=== PATIENT | female | born 1965 | race Hispanic/Latino ===

== ENCOUNTER 2016-07-26 20:39 | Emergency (ER) | payer BC ==
[2016-07-26 20:48] VITALS: BMI 24.3
[2016-07-26 20:53] VITALS: TEMP 98.7
[2016-07-26] MEDS ORDERED: Sodium Chloride 0.9% 1,000 ML IV STA (21:03)
--- NOTE | 2016-07-26 21:08 | ED PDOC ---
"Arrival/HPI - General Chief Complaint: Groin Pain Time Seen by Provider: 07/26/16 20:47 Historian: Patient - History of Present Illness Narrative History of Present Illness (Text): 07/26/16 21:05 51 y/o female, pmh including hypovitaminosis, penicillin and codeine allergy, post menopausal, c/o rt. groin pain x 2 months after heavy lifting. Aching pain , aggravated by squatting, no urinary symptoms, no fever or chills, no headache or night sweat. Pt. stated that the pain started about 3 days ago, been taking motrin daily, started to have burning pain, no night sweat, no dizziness, no numbness or tingling, no palpitation, no night sweat, no other medical or psychological complaints. Past Medical History - Provider Review Nursing Documentation Reviewed: Yes - Infectious Disease Hx of Infectious Diseases: None - Cardiac Hx Cardiac Disorders: No Hx Pacemaker: No - Pulmonary Hx Respiratory Disorders: No - Neurological Hx Neurological Disorder: No Hx Paralysis: No - HEENT Hx HEENT Disorder: No - Renal Hx Renal Disorder: No - Endocrine/Metabolic Hx Endocrine Disorders: No - Hematological/Oncological Hx Blood Disorders: No Hx Blood Transfusions: No Hx Blood Transfusion Reaction: No - Integumentary Hx Dermatological Disorder: No - Musculoskeletal/Rheumatological Hx Musculoskeletal Disorders: Yes (l knee surgery) - Gastrointestinal Hx Gastrointestinal Disorders: Yes (appendectomy) - Genitourinary/Gynecological Hx Genitourinary Disorders: No - Psychiatric Hx Psychophysiologic Disorder: Yes Hx Anxiety: Yes Hx Emotional Abuse: No Hx Physical Abuse: No Hx Substance Use: No - Surgical History Hx Appendectomy: Yes Hx Tonsillectomy: Yes - Anesthesia Hx Anesthesia: Yes Hx Anesthesia Reactions: No Hx Malignant Hyperthermia: No - Suicidal Assessment Feels Threatened In Home Enviroment: No Family/Social History - Physician Review Nursing Documentation Reviewed: Yes Family/Social History: Unknown Family HX Smoking Status: Former Smoker Hx Alcohol Use: Yes Frequency of alcohol use: Socially Hx Substance Use: No Allergies/Home Meds Allergies/Adverse Reactions: Allergies codeine Allergy (Verified 07/26/16 20:49) ANAPHYLAXIS Penicillins Allergy (Verified 07/26/16 20:49) ANAPHYLAXIS Home Medications: Home Meds Medication Instructions Recorded Confirmed Vitamin D 4,000 iu PO DAILY 03/13/13 07/26/16 Alprazolam [Alprazolam] 0.5 mg PO DAILY 03/16/13 07/26/16 Review of Systems - Review of Systems Constitutional: absent: Fatigue, Fevers Eyes: absent: Vision Changes ENT: absent: Hearing Changes Respiratory: absent: Cough Cardiovascular: absent: Chest Pain Gastrointestinal: Abdominal Pain, Nausea. absent: Diarrhea, Vomiting Neurological: absent: Headache, Dizziness, Focal Weakness, Speech Changes Psychiatric: absent: Depression, Suicidal Ideation Physical Exam Vital Signs Reviewed: Yes Vital Signs Temp Pulse Resp BP Pulse Ox 07/26/16 22:54 65 14 100/61 96 07/26/16 20:52 98.7 F 85 19 143/79 97 Temperature: Afebrile Blood Pressure: Normal Pulse: Regular Respiratory Rate: Normal Appearance: Positive for: Well-Appearing, Non-Toxic, Uncomfortable Pain Distress: Moderate Mental Status: Positive for: Alert and Oriented X 3 - Systems Exam Head: Present: Atraumatic, Normocephalic Pupils: Present: PERRL Extroacular Muscles: Present: EOMI Conjunctiva: Present: Normal Mouth: Present: Moist Mucous Membranes Neck: Present: Normal Range of Motion Respiratory/Chest: Present: Clear to Auscultation, Good Air Exchange. No: Respiratory Distress, Accessory Muscle Use Cardiovascular: Present: Regular Rate and Rhythm, Normal S1, S2. No: Murmurs Abdomen: Present: Tenderness (+epigastric tenderness, negative valenzuela signs), Normal Bowel Sounds, Other (+lump approx. 2cm diameter noted on the rt. groin region appear to be hernia). No: Distention, Peritoneal Signs, Rebound Back: Present: Normal Inspection Upper Extremity: Present: Normal Inspection. No: Cyanosis, Edema Lower Extremity: Present: Normal Inspection. No: Edema Neurological: Present: GCS=15, Speech Normal, Motor Func Grossly Intact, Gait Normal, Memory Normal Skin: Present: Warm, Dry, Normal Color. No: Rashes Psychiatric: Present: Alert, Oriented x 3, Normal Insight, Normal Concentration Medical Decision Making ED Course and Treatment: 07/26/16 21:09 -labs/ua/lipase -CT Abdomen and pelvis -IVF/toradol/pepcid/zofran -Observe and reassess 07/26/16 22:16 -Pt. stated that she is allergic to contrast, will change to CT abdomen and pelvis with no contrast. -Swelling lump on the rt. groin region resolved after laying in supine position and pain medication. 07/26/16 23:07 -Labs are non-significant -CT abdomen and pelvis show no acute findings. -Pain resolved with lump resolved, stated that she feels much better, will discharge home. -Discharge home with motrin , avoid lifting/bending or pushing, follow up with your own pmd and general surgeon within 2 days, return to the ER for any new or worsening signs or symptoms. - Lab Interpretations Lab Results: 07/26/16 21:15 07/26/16 21:15 Lab Results 07/26/16 21:15: Sodium 138, Potassium 3.6, Chloride 102, Carbon Dioxide 25, Anion Gap 15, BUN 19, Creatinine 0.8, Est GFR ( Amer) > 60, Est GFR (Non- Af Amer) > 60, Random Glucose 101, Calcium 9.7, Total Bilirubin 0.8, AST 27, ALT 31, Alkaline Phosphatase 69, Total Protein 7.6, Albumin 4.6, Globulin 3.0, Albumin/Globulin Ratio 1.5, Lipase 43 07/26/16 21:15: WBC 7.3, RBC 3.96, Hgb 13.0, Hct 37.0, MCV 93.4, MCH 32.8, MCHC 35.1, RDW 12.1, Plt Count 249, MPV 9.7, Gran % 59.2, Lymph % (Auto) 31.9, [place] % (Auto) 7.0 H, Eos % (Auto) 1.8, Baso % (Auto) 0.1, Gran # 4.31, Lymph # 2.3, [place] # 0.5, Eos # 0.1, Baso # 0.01 I have reviewed the lab results: Yes Interpretation: No clinic. lab abnormalty - RAD Interpretation Radiology Orders: 07/26/16 21:03 ABD & PELVIS W/O PO OR IV CONT [CT] Stat ABDOMEN: Liver: Unremarkable. Gallbladder and bile ducts: The gallbladder is contracted with no stones. No ductal dilation. Pancreas: Unremarkable. No ductal dilation. Spleen: Unremarkable. No splenomegaly. Adrenals: Unremarkable. No mass. Kidneys and ureters: Unremarkable. No obstructing stones. No hydronephrosis. Stomach and bowel: Borderline distention of the stomach with food material. No mucosal thickening. Appendix: There are no changes of appendicitis. A normal appendix is not seen. JONNY INIGUEZ | Preliminary Radiology Report SALES REPRESENTATIVE SALES MANAGER (QA) DISCREPANCY? If there is a discrepancy between the preliminary and final interpretation, please notify [facility] via [email or web address]. If you do not have access to our QA portal, call our QA team at [phone] CONFIDENTIALITY STATEMENT This report is intended only for the use of the referring physician, and only in accordance with law, If you received this in error, call [phone] Page 2 of 2 PELVIS: Bladder: Unremarkable. No stones. Reproductive: Unremarkable as visualized. ABDOMEN and PELVIS: Intraperitoneal space: Unremarkable. No free air. No significant fluid collection. Bones/joints: Facet arthropathy L5-S1 and to a lesser degree L4-L5. No acute fracture. No dislocation. Soft tissues: Unremarkable. Vasculature: Unremarkable. No abdominal aortic aneurysm. Lymph nodes: No inguinal adenopathy. IMPRESSION: 1. There is borderline distention of the stomach with food material which in view of a contracted gallbladder likely reflects recent ingestion. 2. Otherwise negative CT abdomen/pelvis. Thank you for allowing us to participate in the care of your patient. Dictated and Authenticated by: Ronald Eastman MD 07/26/2016 10:34 PM Eastern Time ([place] & [place]) Women'S Swim Coach: Radiologist - Medication Orders Current Medication Orders: Discontinued Medications Famotidine (Pepcid) 20 mg IVP STAT STA Stop: 07/26/16 21:04 Last Admin: 07/26/16 21:31 Dose: 20 mg Sodium Chloride (Sodium Chloride 0.9%) 1,000 mls @ 500 mls/hr IV .Q2H STA Stop: 07/26/16 23:02 Last Admin: 07/26/16 21:31 Dose: 500 mls/hr Iohexol (Omnipaque 350 100 Ml) Confirm Administered Dose 350 mg .ROUTE .STK-MED ONE Stop: 07/26/16 22:05 Ketorolac Tromethamine (Toradol) 30 mg IVP STAT STA Stop: 07/26/16 21:06 Last Admin: 07/26/16 21:30 Dose: 30 mg Ondansetron HCl (Zofran Inj) 4 mg IVP STAT STA Stop: 07/26/16 21:04 Last Admin: 07/26/16 21:31 Dose: 4 mg - PA / VENETIAN BLIND ASSEMBLER / Resident Statement MD/DO has reviewed & agrees with the documentation as recorded. Disposition/Present on Arrival - Present on Arrival Any Indicators Present on Arrival: No History of DVT/PE: No History of Uncontrolled Diabetes: No Urinary Catheter: No History of Decub. Ulcer: No History Surgical Site Infection Following: None - Disposition Have Diagnosis and Disposition been Completed?: Yes Diagnosis: Reducible right inguinal hernia Disposition: HOME/ ROUTINE Disposition Time: 23:10 Patient Plan: Discharge Condition: IMPROVED Additional Instructions: Discharge home with motrin , avoid lifting/bending or pushing, follow up with your own pmd and general surgeon within 2 days, return to the ER for any new or worsening signs or symptoms. Prescriptions: Famotidine [Pepcid] 20 mg PO BID #14 tab Ibuprofen [Motrin] 600 mg PO QID PRN #30 tab PRN Reason: Other Referrals: Damaso Middleton MD [Primary Care Provider] - Follow up with primary Elodia Steen MD [Staff Provider] - Follow up with primary Forms: WORK NOTE"
[2016-07-26 21:30] LABS: ADD MANUAL DIFF? NO
[2016-07-26 21:43] LABS: BASO # 0.01 K/mm3 (0.0-2.0); BASO % 0.1 % (0.0-3.0); EOS # 0.1 (0.0-0.7); EOS % 1.8 % (1.5-5.0); GRAN # 4.31 (1.4-6.5); GRAN % 59.2 % (50.0-68.0); LYMPH # 2.3 (1.2-3.4); LYMPH % 31.9 % (22.0-35.0); MEAN CELL VOLUME 93.4 fL (80.0-105.0); MEAN CORPUSCULAR HEMOGLOBIN 32.8 pg (25.0-35.0); MEAN CORPUSCULAR HGB CONC 35.1 g/dl (31.0-37.0); MEAN PLATELET VOLUME 9.7 fl (7.0-11.0); MONO # 0.5 (0.1-0.6); PLATELET COUNT 249 10^3/uL (120.0-450.0); RED CELL DISTRIBUTION WIDTH 12.1 % (11.5-14.5); WHITE BLOOD COUNT 7.3 10^3/ul (4.5-11.0)
[2016-07-26 21:50] LABS: ALB/GLOB RATIO 1.5 (1.1-1.8); ALKALINE PHOSPHATASE 69 U/L (38-133); ALT/SGPT 31 U/L (7-56); AST/SGOT 27 U/L (15-39); BILIRUBIN,TOTAL 0.8 mg/dL (0.2-1.3); BLOOD UREA NITROGEN 19 mg/dL (7-21); CALCIUM 9.7 mg/dL (8.4-10.5); CARBON DIOXIDE 25 mmol/L (21-33); CHLORIDE 102 mmol/L (98-107); GFR AFRICAN-AMERICAN > 60; GLUCOSE,RANDOM 101 mg/dL (70-110); LIPASE 43 U/L (23-300); POTASSIUM 3.6 mmol/L (3.6-5.0); SODIUM 138 mmol/L (132-148); TOTAL PROTEIN 7.6 g/dL (5.8-8.3)
[2016-07-26] MEDS ORDERED: Iohexol 350 MG/100 ML VIAL ONE (22:04)
[2016-07-26 22:54] VITALS: BP 100/61; PULSE 65; RESP 14; O2SAT 96
--- NOTE | 2016-07-27 07:38 | CT ---
PROCEDURE: CT Abdomen and Pelvis without Oral or IV contrast. HISTORY: rt. groin pain x 2 months COMPARISON: None available TECHNIQUE: Contiguous axial images of the abdomen and pelvis. No oral or IV contrast administered. Coronal and Sagittal reformats generated. Radiation dose: Total exam DLP = 412.04 mGy-cm. This CT exam was performed using one or more of the following dose reduction techniques: Automated exposure control, adjustment of the mA and/or kV according to patient size, and/or use of iterative reconstruction technique. FINDINGS: There is limited evaluation of the solid organs without the administration of IV contrast. LOWER THORAX: No focal consolidation. No pleural effusion. No pneumothorax. LIVER: Unremarkable unenhanced appearance. GALLBLADDER AND BILE DUCTS: Contracted gallbladder appears otherwise unremarkable. PANCREAS: Unremarkable unenhanced appearance. SPLEEN: Unremarkable unenhanced appearance. ADRENALS: Unremarkable unenhanced appearance. KIDNEYS AND URETERS: No hydronephrosis or obstructing renal calculus. BLADDER: The urinary bladder appears unremarkable. REPRODUCTIVE: Uterus is present. APPENDIX: The appendix is not identified. Numerous surgical clips are noted in the right lower quadrant, possibly related to appendectomy. No secondary signs of acute appendicitis. BOWEL: The stomach is partially distended with internal contents, likely ingested debris. Lack of oral contrast limits evaluation for bowel pathology. The bowel loops appear within normal limits of caliber without evidence of intestinal obstruction. Mild to moderate constipation. PERITONEUM: No significant free fluid. No definite free air. LYMPH NODES: Sub cm bilateral inguinal lymph nodes, nonspecific. VASCULATURE: Atherosclerotic calcifications the aorta ranges. No aortic aneurysm. BONES: Mild degenerative changes. OTHER FINDINGS: None. IMPRESSION: The stomach is partially distended with internal contents, likely ingested debris. Mild to moderate constipation. Preliminary impression was provided by virtual radiologic.
== END 2016-07-26 23:20 | disposition home or self-care (01) ==
LOC: ED 20:39
DX: K40.90 Unilateral inguinal hernia, without obstruction or gangrene, not specified as recurrent (principal)
CPT/HCPCS: 74176; 80053; 83690; 85025; 96374; 96375; 99283; J1885; J2405; J7040

== ENCOUNTER 2016-09-10 19:01 | Emergency (ER) | payer BC ==
[2016-09-10 19:01] VITALS: BMI 24.3
[2016-09-10 19:40] VITALS: TEMP 98.9; O2SAT 98
[2016-09-10] MEDS ORDERED: Sodium Chloride 0.9% 1,000 ML IV SCH (20:15)
--- NOTE | 2016-09-10 20:27 | ED PDOC ---
Arrival/HPI - General Chief Complaint: Abdominal Pain Time Seen by Provider: 09/10/16 19:42 Historian: Patient - History of Present Illness Narrative History of Present Illness (Text): 09/10/16 20:27 A 51 year old female, whose past medical history includes hypovitaminosis, gastric reflux, appendectomy, postmenopausal, penicillin and codeine allergy, presents to the emergency department complaining of persistent right groin discomfort. Patient states waxes and wanes for more than 2 months. Patient reports having episode of heavy lifting prior to onset of symptoms. Patient was seen in the emergency department a month ago, treated and discharged. Abdomen and pelvis CT was normal. Patient reports she doesn't have a hernia. Denies any fever, chills, nausea, vomiting, diarrhea, urinary complaints, vaginal discharge or any other complaints at this time. Time/Duration: Other (> 2 month) Symptom Onset: Sudden Symptom Course: Unchanged Activities at Onset: Rest Context: Home Past Medical History - Provider Review Nursing Documentation Reviewed: Yes - Infectious Disease Hx of Infectious Diseases: None - Cardiac Hx Cardiac Disorders: No Hx Pacemaker: No - Pulmonary Hx Respiratory Disorders: No - Neurological Hx Neurological Disorder: No Hx Paralysis: No - HEENT Hx HEENT Disorder: No - Renal Hx Renal Disorder: No - Endocrine/Metabolic Hx Endocrine Disorders: No - Hematological/Oncological Hx Blood Disorders: No Hx Blood Transfusions: No Hx Blood Transfusion Reaction: No - Integumentary Hx Dermatological Disorder: No - Musculoskeletal/Rheumatological Hx Musculoskeletal Disorders: Yes (l knee surgery) - Gastrointestinal Hx Gastrointestinal Disorders: Yes (appendectomy) Hx Gastroesophageal Reflux: Yes - Genitourinary/Gynecological Hx Genitourinary Disorders: No - Psychiatric Hx Psychophysiologic Disorder: Yes Hx Anxiety: Yes Hx Emotional Abuse: No Hx Physical Abuse: No Hx Substance Use: No - Surgical History Hx Appendectomy: Yes Hx Tonsillectomy: Yes - Anesthesia Hx Anesthesia: Yes Hx Anesthesia Reactions: No Hx Malignant Hyperthermia: No - Suicidal Assessment Feels Threatened In Home Enviroment: No Family/Social History - Physician Review Nursing Documentation Reviewed: Yes Family/Social History: No Known Family HX Smoking Status: Former Smoker Hx Alcohol Use: Yes Hx Substance Use: No Allergies/Home Meds Allergies/Adverse Reactions: Allergies codeine Allergy (Verified 07/26/16 20:49) ANAPHYLAXIS Penicillins Allergy (Verified 07/26/16 20:49) ANAPHYLAXIS Home Medications: Home Meds Medication Instructions Recorded Confirmed ALPRAZolam [Xanax] 0.5 mg PO DAILY 09/10/16 09/10/16 Cholecalciferol [Vitamin D 1000 IU] 4,000 unit PO DAILY 09/10/16 09/10/16 Review of Systems - Physician Review All systems were reviewed & negative as marked: Yes - Review of Systems Constitutional: absent: Fevers, Other (chills) Gastrointestinal: absent: Nausea, Vomiting Genitourinary Female: absent: Dysuria, Frequency, Vaginal Discharge Physical Exam Vital Signs Reviewed: Yes Vital Signs Temp Pulse Resp BP Pulse Ox 09/10/16 19:36 98.9 F 74 18 166/94 H 98 Temperature: Afebrile Blood Pressure: Hypertensive Pulse: Regular Respiratory Rate: Normal Appearance: Positive for: Well-Appearing, Non-Toxic, Comfortable Pain Distress: None Mental Status: Positive for: Alert and Oriented X 3 - Systems Exam Head: Present: Atraumatic, Normocephalic Pupils: Present: PERRL Extroacular Muscles: Present: EOMI Conjunctiva: Present: Normal Mouth: Present: Moist Mucous Membranes Neck: Present: Normal Range of Motion Respiratory/Chest: Present: Clear to Auscultation, Good Air Exchange. No: Respiratory Distress, Accessory Muscle Use Cardiovascular: Present: Regular Rate and Rhythm, Normal S1, S2. No: Murmurs Abdomen: Present: Normal Bowel Sounds. No: Tenderness, Distention, Peritoneal Signs, Hernias Back: Present: Normal Inspection Upper Extremity: Present: Normal Inspection. No: Cyanosis, Edema Lower Extremity: Present: Normal Inspection. No: Edema Neurological: Present: GCS=15, CN II-XII Intact, Speech Normal Skin: Present: Warm, Dry, Normal Color. No: Rashes Psychiatric: Present: Alert, Oriented x 3, Normal Insight, Normal Concentration Medical Decision Making ED Course and Treatment: 09/10/16 20:24 Impression: A 51 year old female with right groin discomfort. Plan: -- US transvaginal -- US abdomen -- labs -- Urinalysis -- IV fluids, Protonix -- Reassess and disposition Prior Visits: Notes and results from previous visits were reviewed. Patient last reported to the emergency department on 07/26/16 for evaluation of right groin pain after heavy lifting. Progress Notes: 09/10/16 23:36 Reviewed sono, US Abdomen shows: 1. No acute findings. 2. Non-acute findings are described above. Transvaginal shows: 1. Probable fibroid. 2. Incidental/non-acute findings are described above. 09/10/16 23:39 Reviewed radiology, CT Abdomen and Pelvis shows: 1. No definite acute intraabdominal abnormality. 2. Incidental/non-acute findings are described above 09/10/16 23:55 On reevaluation the patient feels better and is in no acute distress. I have discussed the results and plan with the patient, who expresses understanding. Patient given the opportunity to ask question, all questions were answered and there is agreement with the plan to discharge the patient home. Patient is stable for discharge. Patient was instructed to follow up with physician/clinic in 1-2 days or return if symptoms persist/worsen or new concerning symptoms arise. - Lab Interpretations Lab Results: 09/10/16 20:20 09/10/16 20:20 Lab Results 09/10/16 20:40: Urine Color Yellow, Urine Appearance Clear, Urine pH 6.0, Ur Specific [place] 1.010, Urine Protein Negative, Urine Glucose (UA) Negative, Urine Ketones Negative, Urine Blood Negative, Urine Nitrate Negative, Urine Bilirubin Negative, Urine Urobilinogen 0.2, Ur Leukocyte Esterase Negative, Urine HCG, Qual Negative 09/10/16 20:20: WBC 7.1, RBC 3.89, Hgb 12.5, Hct 36.5, MCV 93.8, MCH 32.1, MCHC 34.2, RDW 12.1, Plt Count 241, MPV 10.0 09/10/16 20:20: Sodium 139, Potassium 3.9, Chloride 104, Carbon Dioxide 25, Anion Gap 14, BUN 20, Creatinine 0.8, Est GFR ( Amer) > 60, Est GFR (Non- Af Amer) > 60, Random Glucose 95, Calcium 9.2, Total Bilirubin 0.4, AST 20, ALT 30, Alkaline Phosphatase 58, Total Protein 7.4, Albumin 4.3, Globulin 3.1, Albumin/Globulin Ratio 1.4, Lipase 38 I have reviewed the lab results: Yes - RAD Interpretation Narrative RAD Interpretations (Text): US Abdomen shows: Liver: Normal echogenicity. No mass. No intrahepatic bile duct dilatation. Gallbladder: No gallstones. No wall thickening. No pericholecystic fluid. No sonographic Sifuentes's sign. Common bile duct: No dilatation. No stones. Pancreas: Unremarkable as visualized. Kidneys: Normal echogenicity. No hydronephrosis. Spleen: No splenomegaly. Aorta: Unremarkable. No aneurysm. Inferior vena cava: Unremarkable. Free fluid: No significant free fluid. IMPRESSION: 1. No acute findings. 2. Non-acute findings are described above. Transvaginal shows: Uterus/cervix: Uterus measures 5.5 x 3.1 x 3.9 cm in size. Retroverted uterus. 0.7 x 0.7 x 0.5 cm anterior uterine mass. Endometrium: 0.3 cm in thickness. Right ovary: 1.9 x 2.1 x 1.5 cm in size. No mass. Normal flow. Left ovary: 2.2 x 1.7 x 1.6 cm in size. No mass. Normal flow. Free fluid: No significant free fluid. Bladder: Unremarkable as visualized. IMPRESSION: 1. Probable fibroid. 2. Incidental/non-acute findings are described above. CT Abdomen and Pelvis shows: Limitations: Lack of intravenous contrast. Lower thorax: No acute findings. ABDOMEN: Liver: Unremarkable. Gallbladder and bile ducts: No calcified stones. No ductal dilation. Pancreas: Unremarkable. No ductal dilation. Spleen: No splenomegaly. Adrenals: No mass. Kidneys and ureters: No renal calculi. No hydronephrosis. Stomach and bowel: No definite mural thickening. No obstruction. Appendix: Probable appendectomy. PELVIS: Bladder: Unremarkable. No stones. Reproductive: Unremarkable as visualized. ABDOMEN and PELVIS: Intraperitoneal space: No significant fluid collection. No free air. Bones/joints: No acute fracture. Soft tissues: Unremarkable. Vasculature: Mild atherosclerotic disease. No aneurysm. Lymph nodes: No pathologically enlarged lymph nodes. IMPRESSION: 1. No definite acute intraabdominal abnormality. 2. Incidental/non-acute findings are described above Radiology Orders: 09/10/16 20:13 ABDOMEN COMPLETE [US] Stat TRANSVAGINAL [US] Stat 09/10/16 22:11 ABD & PELVIS W/O PO OR IV CONT [CT] Stat Computing Consultant: Radiologist - Medication Orders Current Medication Orders: Sodium Chloride (Sodium Chloride 0.9%) 1,000 mls @ 100 mls/hr IV .Q10H KRISHNA Last Admin: 09/10/16 20:44 Dose: 100 mls/hr Discontinued Medications Pantoprazole Sodium (Protonix Inj) 40 mg IVP ONCE STA Stop: 09/10/16 20:16 Last Admin: 09/10/16 20:44 Dose: 40 mg - Suzanneibabdiel Statement The provider has reviewed the documentation as recorded by the Rosario Osborn Provider Rosario Attestation: All medical record entries made by the Suzanneibabdiel were at my direction and personally dictated by me. I have reviewed the chart and agree that the record accurately reflects my personal performance of the history, physical exam, medical decision making, and the department course for this patient. I have also personally directed, reviewed, and agree with the discharge instructions and disposition. Disposition/Present on Arrival - Present on Arrival Any Indicators Present on Arrival: No History of DVT/PE: No History of Uncontrolled Diabetes: No Urinary Catheter: No History of Decub. Ulcer: No History Surgical Site Infection Following: None - Disposition Have Diagnosis and Disposition been Completed?: Yes Diagnosis: Abdominal pain, Uterine fibroid Disposition: HOME/ ROUTINE Disposition Time: 23:53 Patient Plan: Discharge Patient Problems: Current Active Problems Problem Status Onset Abdominal pain Acute Uterine fibroid Acute Condition: STABLE Discharge Instructions (ExitCare): Uterine Fibroids (ED), Abdominal Pain (ED) Additional Instructions: Avoid any strenuous physical activity/Follow up with your doctor this week Referrals: Damaso Middleton MD [Primary Care Provider] - Follow up with primary
[2016-09-10 20:37] LABS: HEMOGLOBIN 12.5 gm/dL (12.0-16.0); MEAN CELL VOLUME 93.8 fL (80.0-105.0); MEAN CORPUSCULAR HEMOGLOBIN 32.1 pg (25.0-35.0); MEAN CORPUSCULAR HGB CONC 34.2 g/dl (31.0-37.0); RBC 3.89 10^6/uL (3.5-6.1); RED CELL DISTRIBUTION WIDTH 12.1 % (11.5-14.5); WHITE BLOOD COUNT 7.1 10^3/ul (4.5-11.0)
[2016-09-10 20:45] LABS: ALB/GLOB RATIO 1.4 (1.1-1.8); ALBUMIN 4.3 g/dL (3.0-4.8); ALT/SGPT 30 U/L (7-56); AST/SGOT 20 U/L (15-39); BLOOD UREA NITROGEN 20 mg/dL (7-21); CALCIUM 9.2 mg/dL (8.4-10.5); GFR AFRICAN-AMERICAN > 60; GFR NON-AFRICAN AMERICAN > 60; LIPASE 38 U/L (23-300)
[2016-09-10 21:01] LABS: URINE APPEARANCE CLEAR (CLEAR); URINE BILIRUBIN NEGATIVE (NEGATIVE); URINE BLOOD NEGATIVE (NEGATIVE); URINE COLOR YELLOW (YELLOW); URINE GLUCOSE (UA) NEGATIVE (NEGATIVE); URINE LEUKOCYTE ESTERASE NEGATIVE Leu/uL (NEGATIVE); URINE NITRATE NEGATIVE (NEGATIVE); URINE PROTEIN NEGATIVE mg/dL (<30 mg/dL); URINE UROBILINOGEN 0.2 E.U./dL (<1 E.U./dL)
[2016-09-10 21:02] LABS: HCG,QUALITATIVE URINE NEGATIVE (NEGATIVE)
--- NOTE | 2016-09-10 23:18 | US ---
EXAM: US Abdomen Complete CLINICAL HISTORY: 51 years old, female; Pain; Abdominal pain; Epigastric TECHNIQUE: Real-time ultrasound of the abdomen (complete) with image documentation. COMPARISON: CT - ABD PELVIS W/O PO OR IV CONT 07/26/2016 10:06:05 PM FINDINGS: Liver: Normal echogenicity. No mass. No intrahepatic bile duct dilatation. Gallbladder: No gallstones. No wall thickening. No pericholecystic fluid. No sonographic Sifuentes's sign. Common bile duct: No dilatation. No stones. Pancreas: Unremarkable as visualized. Kidneys: Normal echogenicity. No hydronephrosis. Spleen: No splenomegaly. Aorta: Unremarkable. No aneurysm. Inferior vena cava: Unremarkable. Free fluid: No significant free fluid. IMPRESSION: 1.No acute findings. 2.Non-acute findings are described above.
--- NOTE | 2016-09-10 23:21 | US ---
EXAM: US Pelvis Complete, Transabdominal CLINICAL HISTORY: 51 years old, female; Pain; Abdominal pain; Lower abdomen TECHNIQUE: Real-time transabdominal pelvic ultrasound (complete) with image documentation. COMPARISON: CT - ABD PELVIS W/O PO OR IV CONT 07/26/2016 10:06:05 PM FINDINGS: Uterus/cervix: Uterus measures 5.5 x 3.1 x 3.9 cm in size. Retroverted uterus. 0.7 x 0.7 x 0.5 cm anterior uterine mass. Endometrium: 0.3 cm in thickness. Right ovary: 1.9 x 2.1 x 1.5 cm in size. No mass. Normal flow. Left ovary: 2.2 x 1.7 x 1.6 cm in size. No mass. Normal flow. Free fluid: No significant free fluid. Bladder: Unremarkable as visualized. IMPRESSION: 1. Probable fibroid. 2. Incidental/non-acute findings are described above. EXAM: US Pelvis, Transvaginal CLINICAL HISTORY: 51 years old, female; Pain; Abdominal pain; Lower abdomen TECHNIQUE: Real-time transvaginal pelvic ultrasound (complete) with image documentation. Transvaginal imaging was used for better evaluation of the endometrium and adnexa. COMPARISON: CT - ABD PELVIS W/O PO OR IV CONT 07/26/2016 10:06:05 PM FINDINGS: Uterus/cervix: Uterus measures 5.5 x 3.1 x 3.9 cm in size. Retroverted uterus. 0.7 x 0.7 x 0.5 cm anterior uterine mass. Endometrium: 0.3 cm in thickness. Right ovary: 1.9 x 2.1 x 1.5 cm in size. No mass. Normal flow. Left ovary: 2.2 x 1.7 x 1.6 cm in size. No mass. Normal flow. Free fluid: No significant free fluid. Bladder: Empty bladder which cannot be evaluated with this probe.
--- NOTE | 2016-09-10 23:35 | CT ---
EXAM: CT Abdomen and Pelvis Without Intravenous Contrast CLINICAL HISTORY: 51 years old, female; Pain; Abdominal pain; Localized; Right lower quadrant (rlq); Additional info: Right lower abdominal pain TECHNIQUE: Axial computed tomography images of the abdomen and pelvis without intravenous contrast. This CT exam was performed using one or more of the following dose reduction techniques: automated exposure control, adjustment of the mA and/or kV according to patient size, and/or use of iterative reconstruction technique. Coronal and sagittal reformatted images were created and reviewed. COMPARISON: CT - ABD PELVIS W/O PO OR IV CONT 07/26/2016 10:06:05 PM FINDINGS: Limitations: Lack of intravenous contrast. Lower thorax: No acute findings. ABDOMEN: Liver: Unremarkable. Gallbladder and bile ducts: No calcified stones. No ductal dilation. Pancreas: Unremarkable. No ductal dilation. Spleen: No splenomegaly. Adrenals: No mass. Kidneys and ureters: No renal calculi. No hydronephrosis. Stomach and bowel: No definite mural thickening. No obstruction. Appendix: Probable appendectomy. PELVIS: Bladder: Unremarkable. No stones. Reproductive: Unremarkable as visualized. ABDOMEN and PELVIS: Intraperitoneal space: No significant fluid collection. No free air. Bones/joints: No acute fracture. Soft tissues: Unremarkable. Vasculature: Mild atherosclerotic disease. No aneurysm. Lymph nodes: No pathologically enlarged lymph nodes. IMPRESSION: 1. No definite acute intraabdominal abnormality. 2. Incidental/non-acute findings are described above.
[2016-09-11 00:06] VITALS: BP 136/74; PULSE 58; RESP 14
== END 2016-09-11 00:06 | disposition home or self-care (01) ==
LOC: ED 19:01
DX: D25.9 Leiomyoma of uterus, unspecified (principal); R10.9 Unspecified abdominal pain; K21.9 Gastro-esophageal reflux disease without esophagitis
CPT/HCPCS: 74176; 76700; 76830; 80053; 81003; 83690; 84703; 85027; 96374; 99284; C9113; J7040

== ENCOUNTER 2016-09-21 15:29 | Observation (INO) | payer BC ==
[2016-09-21 15:34] VITALS: BMI 24.1
[2016-09-21 16:36] LABS: ADD MANUAL DIFF? NO
[2016-09-21 16:40] LABS: BASO # 0.02 K/mm3 (0.0-2.0); BASO % 0.3 % (0.0-3.0); EOS # 0.1 (0.0-0.7); EOS % 0.8 % (1.5-5.0); GRAN # 5.36 (1.4-6.5); GRAN % 71.2 % (50.0-68.0); HEMATOCRIT 36.2 % (36.0-48.0); LYMPH # 1.5 (1.2-3.4); LYMPH % 20.3 % (22.0-35.0); MEAN CELL VOLUME 92.6 fL (80.0-105.0); MEAN CORPUSCULAR HEMOGLOBIN 32.2 pg (25.0-35.0); MEAN CORPUSCULAR HGB CONC 34.8 g/dl (31.0-37.0); MONO # 0.6 (0.1-0.6); MONO % 7.4 % (1.0-6.0); PLATELET COUNT 197 10^3/uL (120.0-450.0); RED CELL DISTRIBUTION WIDTH 11.7 % (11.5-14.5); WHITE BLOOD COUNT 7.5 10^3/ul (4.5-11.0)
[2016-09-21 16:59] LABS: ALB/GLOB RATIO 1.4 (1.1-1.8); ALKALINE PHOSPHATASE 66 U/L (38-133); ALT/SGPT 39 U/L (7-56); AST/SGOT 32 U/L (15-39); BILIRUBIN,TOTAL 0.6 mg/dL (0.2-1.3); BLOOD UREA NITROGEN 13 mg/dL (7-21); CALCIUM 9.4 mg/dL (8.4-10.5); CARBON DIOXIDE 27 mmol/L (21-33); CHLORIDE 100 mmol/L (98-107); GFR AFRICAN-AMERICAN > 60; GLUCOSE,RANDOM 89 mg/dL (70-110); POTASSIUM 3.5 mmol/L (3.6-5.0); SODIUM 136 mmol/L (132-148); TOTAL PROTEIN 7.4 g/dL (5.8-8.3)
[2016-09-21 17:21] LABS: PH,URINE 6.5 (4.7-8.0); URINE BILIRUBIN NEGATIVE (NEGATIVE); URINE BLOOD NEGATIVE (NEGATIVE); URINE GLUCOSE (UA) NEGATIVE (NEGATIVE); URINE KETONE NEGATIVE (NEGATIVE); URINE LEUKOCYTE ESTERASE SMALL Leu/uL (NEGATIVE); URINE PROTEIN NEGATIVE mg/dL (<30 mg/dL); URINE UROBILINOGEN 0.2 E.U./dL (<1 E.U./dL)
[2016-09-21 17:24] LABS: TROPONIN I < 0.01 ng/mL
[2016-09-21 17:26] LABS: URINE APPEARANCE CLEAR (CLEAR); URINE COLOR YELLOW (YELLOW)
[2016-09-21 17:27] LABS: URINE AMORPHOUS SEDIMENT SMALL
--- NOTE | 2016-09-21 17:31 | ED PDOC ---
Arrival/HPI - General Chief Complaint: Weakness/Neurological Deficit Time Seen by Provider: 09/21/16 15:37 Historian: Patient - History of Present Illness Narrative History of Present Illness (Text): 09/21/16 17:28 Patient is a 51 year old female presents to ED after experiencing a sudden onset of weakness and dizziness prior to arrival while at store. She subsequently was driving and suddenly felt extremely weak as if she might pass out, associated with "shaking everywhere" and right sided facial numbness. Currently she still has sensation of "not feeling right" as if she may pass out , as well as persistent numbness to right side of face. Patient reports having history of right groin/abdominal pain for several months that has not changed in character or intensity today. Denies new medication aside from Tramadol which she took several days ago with NO adverse effects. No incontinence of urine or stool. No fevers. No chest pain or shortness of breath or palpitations. Time/Duration: Prior to Arrival Symptom Onset: Sudden Past Medical History - Infectious Disease Hx of Infectious Diseases: None - Cardiac Hx Cardiac Disorders: No Hx Pacemaker: No - Pulmonary Hx Respiratory Disorders: No - Neurological Hx Neurological Disorder: No Hx Paralysis: No - HEENT Hx HEENT Disorder: No - Renal Hx Renal Disorder: No - Endocrine/Metabolic Hx Endocrine Disorders: No - Hematological/Oncological Hx Blood Disorders: No Hx Blood Transfusions: No Hx Blood Transfusion Reaction: No - Integumentary Hx Dermatological Disorder: No - Musculoskeletal/Rheumatological Hx Musculoskeletal Disorders: Yes (l knee surgery) - Gastrointestinal Hx Gastrointestinal Disorders: Yes (appendectomy) Hx Gastroesophageal Reflux: Yes - Genitourinary/Gynecological Hx Genitourinary Disorders: No - Psychiatric Hx Psychophysiologic Disorder: Yes Hx Anxiety: Yes Hx Emotional Abuse: No Hx Physical Abuse: No Hx Substance Use: No - Surgical History Hx Appendectomy: Yes Hx Tonsillectomy: Yes - Anesthesia Hx Anesthesia: Yes Hx Anesthesia Reactions: No Hx Malignant Hyperthermia: No - Suicidal Assessment Feels Threatened In Home Enviroment: No Family/Social History Family/Social History: Unknown Family HX Smoking Status: Former Smoker Hx Alcohol Use: Yes Hx Substance Use: No Allergies/Home Meds Allergies/Adverse Reactions: Allergies codeine Allergy (Verified 07/26/16 20:49) ANAPHYLAXIS Penicillins Allergy (Verified 07/26/16 20:49) ANAPHYLAXIS Home Medications: Home Meds Medication Instructions Recorded Confirmed ALPRAZolam [Xanax] 0.5 mg PO DAILY 09/10/16 09/21/16 Cholecalciferol [Vitamin D 1000 IU] 4,000 unit PO DAILY 09/10/16 09/21/16 Review of Systems - Review of Systems Constitutional: Fatigue. absent: Fevers, Night Sweats Eyes: absent: Vision Changes ENT: absent: Hearing Changes, TMJ Pain Respiratory: absent: SOB, Cough Cardiovascular: absent: Chest Pain, Palpitations, Edema, MIGUEL Gastrointestinal: Other (right groin pain). absent: Abdominal Pain, Nausea, Vomiting Genitourinary Female: absent: Dysuria, Frequency, Vaginal Discharge Musculoskeletal: absent: Back Pain, Neck Pain Skin: absent: Rash Neurological: Headache, Dizziness, Disequilibrium. absent: Focal Weakness, Gait Changes, Speech Changes, Facial Droop, Seizure Endocrine: absent: Polyuria Hemo/Lymphatic: absent: Easy Bleeding Psychiatric: absent: Depression Physical Exam Vital Signs Reviewed: Yes Vital Signs Temp Pulse Resp BP Pulse Ox 09/21/16 21:39 68 17 121/71 100 09/21/16 18:27 61 18 113/64 98 09/21/16 17:06 69 18 118/71 98 09/21/16 15:53 98.2 F 75 18 121/75 98 Temperature: Afebrile Blood Pressure: Normal Appearance: Positive for: Well-Appearing, Non-Toxic Mental Status: Positive for: Alert and Oriented X 3 - Systems Exam Head: Present: Atraumatic, Normocephalic Pupils: Present: PERRL Extroacular Muscles: Present: EOMI Mouth: Present: Moist Mucous Membranes. No: Dry Pharnyx: No: ERYTHEMA Nose (Internal): Present: Normal Inspection Neck: Present: Normal Range of Motion. No: Meningeal Signs, MIDLINE TENDERNESS , Paraspinal Tenderness Respiratory/Chest: Present: Clear to Auscultation. No: Respiratory Distress Cardiovascular: Present: Regular Rate and Rhythm Abdomen: Present: Normal Bowel Sounds, Other (there is pain to right inguinal region with no palpable mass currently, no erythema or edema, strong pulses). No: Tenderness, Peritoneal Signs Back: No: CVA Tenderness, Pain with Leg Raise Upper Extremity: Present: Normal ROM, NORMAL PULSES. No: Cyanosis, Edema Lower Extremity: Present: NORMAL PULSES, Normal ROM. No: Edema, CALF TENDERNESS Neurological: Present: Speech Normal, Motor Func Grossly Intact, Normal Sensory Function, Normal Cerebellar Funct, Norm Deep Tendon Reflexes, Memory Normal, Normal 2Pt Descrimination Skin: Present: Warm Psychiatric: Present: Alert, Normal Concentration, Normal Affect, Normal Mood Medical Decision Making ED Course and Treatment: 09/21/16 17:34 Patient is a 51 yo female reports sudden onset of weakness, dizziness. No LOC, currently awake, alert but has faint sensation. No chest pain or sob. No change in history of recent right inguinal pain. NV intact with no focal deficits on intial exam. No hypotension or tachcyardia noted. No respiratory distress. Will monitor with serial neuro exams, labs and ct ordered. On re-exam, patient with persistent sensation of lightheadedness, although not orthostatic. She has pain in her right lower abdomen/groin. I suspect muscular etiology of this pain vs. hernia vs. strain. Currently also some nausea and epigastric discomfort but she states this has been intermittent for several months. I reviewed prior CT abdomen/pelvis and ultrasounds from recent previous visits. No known hx of cholelithiasis. Cannot associate this pain with her episodes of right facial numbness. No drooping of visual symptoms noted. No focal weakness noted in arms or legs. Labs reviewed. Will admit for further neurologic and cardiac monitoring. After toradol, zofran. Pain improved, nausea improved. Re-exam, no neuro deficits. Doubt medication side effect as no new meds recently. Patient reports past MRI of hip which was unremarkable. Suspect possible component of referred pain, although this appears distinct from today's presenting complaints. Case d/w Dr. Beebe, covering for her PMD Dr. Middleton. Treatment plan and plan for observation of symptoms d/w patient and family. Limitations of imaging studies reviewed with patient, as well as need for serial exams. - Lab Interpretations Lab Results: 09/21/16 16:30 09/21/16 16:30 Lab Results 09/21/16 16:55: Urine Color Yellow, Urine Appearance Clear, Urine pH 6.5, Ur Specific [place] <= 1.005, Urine Protein Negative, Urine Glucose (UA) Negative, Urine Ketones Negative, Urine Blood Negative, Urine Nitrate Negative, Urine Bilirubin Negative, Urine Urobilinogen 0.2, Ur Leukocyte Esterase Small H, Urine RBC TEST NOT PERFORMED, Urine WBC 5 - 10, Ur Epithelial Cells 10 - 12, Amorphous Sediment Small, Urine HCG, Qual Negative 09/21/16 16:30: Triglycerides 58, Cholesterol 178, LDL Cholesterol Direct 85, HDL Cholesterol 69 H 09/21/16 16:30: Sodium 136, Potassium 3.5 L, Chloride 100, Carbon Dioxide 27, Anion Gap 13, BUN 13, Creatinine 0.8, Est GFR ( Amer) > 60, Est GFR (Non- Af Amer) > 60, Random Glucose 89, Calcium 9.4, Total Bilirubin 0.6, AST 32, ALT 39, Alkaline Phosphatase 66, Lactate Dehydrogenase 358, Total Creatine Kinase 48 , Troponin I < 0.01, Total Protein 7.4, Albumin 4.3, Globulin 3.1, Albumin/ Globulin Ratio 1.4 09/21/16 16:30: WBC 7.5, RBC 3.91, Hgb 12.6, Hct 36.2, MCV 92.6, MCH 32.2, MCHC 34.8, RDW 11.7, Plt Count 197, MPV 10.0, Gran % 71.2 H, Lymph % (Auto) 20.3 L, Petroleum % (Auto) 7.4 H, Eos % (Auto) 0.8 L, Baso % (Auto) 0.3, Gran # 5.36, Lymph # 1.5, Petroleum # 0.6, Eos # 0.1, Baso # 0.02 09/21/16 15:32: POC Glucose (mg/dL) 107 - RAD Interpretation Radiology Orders: 09/21/16 16:09 HEAD W/O CONTRAST [CT] Stat CHEST ONE VIEW [RAD] Stat 09/21/16 18:33 CAROTID & VERTEBRAL DUPLEX [US] Urgent - EKG Interpretation EKG Interpretation (Text): 09/21/16 17:36 EKG at 16:11 normal sinus rhythm rate of [address] elevations Interpreted by ED Physician: Yes Type: 12 lead EKG - Medication Orders Current Medication Orders: Alprazolam (Xanax) 0.5 mg PO DAILY KRISHNA PRN Reason: Protocol Stop: 09/29/16 10:01 Dextrose/Sodium Chloride (Dextrose 5%/0.45% Ns 1000 Ml) 1,000 mls @ 100 mls/hr IV .Q10H KRISHNA Discontinued Medications Alprazolam (Xanax) 0.25 mg PO STAT STA Stop: 09/21/16 19:29 Last Admin: 09/21/16 19:41 Dose: 0.25 mg Gadodiamide (Omniscan No Safepak) Confirm Administered Dose 4,305 mg IV .STK- MED ONE Stop: 09/21/16 20:10 Sodium Chloride (Sodium Chloride 0.9%) 1,000 mls @ 100 mls/hr IV .Q10H KRISHNA Last Admin: 09/21/16 18:36 Dose: 100 mls/hr Ketorolac Tromethamine (Toradol) 30 mg IVP ONCE ONE Stop: 09/21/16 18:29 Last Admin: 09/21/16 19:00 Dose: 30 mg Ondansetron HCl (Zofran Inj) 4 mg IVP ONCE ONE Stop: 09/21/16 18:29 Last Admin: 09/21/16 18:36 Dose: 4 mg Ondansetron HCl (Zofran Inj) Confirm Administered Dose 4 mg .ROUTE .STK-MED ONE Stop: 09/21/16 18:32 Last Admin: 09/21/16 18:37 Dose: Potassium Chloride (K-Dur 20 Meq Er Tab) 20 meq PO STAT STA Stop: 09/21/16 18:29 Last Admin: 09/21/16 19:00 Dose: 20 meq Disposition/Present on Arrival - Present on Arrival Any Indicators Present on Arrival: No History of DVT/PE: No History of Uncontrolled Diabetes: No Urinary Catheter: No History of Decub. Ulcer: No History Surgical Site Infection Following: None - Disposition Have Diagnosis and Disposition been Completed?: Yes Diagnosis: Near syncope, Facial numbness, Abdominal pain, Nausea Disposition: HOSPITALIZED Disposition Time: 18:00 Patient Plan: Admission, Observation Patient Problems: Current Active Problems Problem Status Onset Abdominal pain Acute Facial numbness Acute Nausea Acute Near syncope Acute Condition: FAIR
--- NOTE | 2016-09-21 17:45 | RAD ---
PROCEDURE: CHEST RADIOGRAPH, 1 VIEW HISTORY: weakness COMPARISON: [place] chest dated 08/04/2015 FINDINGS: LUNGS: Clear. PLEURA: No pneumothorax or pleural fluid seen. CARDIOVASCULAR: Normal. OSSEOUS STRUCTURES: No significant abnormalities. VISUALIZED UPPER ABDOMEN: Normal. OTHER FINDINGS: None. IMPRESSION: No acute infiltrates.
--- NOTE | 2016-09-21 17:54 | CT ---
PROCEDURE: CT HEAD WITHOUT CONTRAST. HISTORY: right sided facial numbness COMPARISON: None available. TECHNIQUE: Axial computed tomography images were obtained through the head/brain without intravenous contrast. Radiation dose: Total exam DLP = 725.84 mGy-cm. This CT exam was performed using one or more of the following dose reduction techniques: Automated exposure control, adjustment of the mA and/or kV according to patient size, and/or use of iterative reconstruction technique. FINDINGS: HEMORRHAGE: No intracranial hemorrhage. BRAIN: Shea-white matter differentiation is preserved. There is no mass, mass effect or abnormal extra-axial fluid collection. There is no territorial infarction. VENTRICLES: The ventricles are normal in size, shape and configuration. CALVARIUM: The skull base and calvarium are normal. PARANASAL SINUSES: Predominantly clear. MASTOID AIR CELLS: Predominantly clear. OTHER FINDINGS: None. IMPRESSION: No acute intracranial abnormality. If there is a persistent focal neurologic deficit and an ongoing clinical concern for acute infarction, an MRI of the brain without intravenous contrast would be a more sensitive modality for evaluation of hyperacute/acute ischemic infarction.
[2016-09-21] MEDS ORDERED: Potassium Chloride 20 mEq ER Tab PO STA (18:28)
[2016-09-21] MEDS ORDERED: Sodium Chloride 0.9% 1,000 ML IV SCH (18:30)
--- NOTE | 2016-09-21 19:34 | US ---
PROCEDURE: Bilateral carotid artery duplex ultrasound HISTORY: Carotid stenosis PHYSICIAN(S): Matthieu Rogers MD. TECHNIQUE: Duplex sonography and color-flow Doppler were used to evaluate the carotid bifurcations and limited segments of the vertebral arteries bilaterally. FINDINGS: There is mild to moderate smooth heterogeneous plaque noted at the carotid bifurcations bilaterally. The peak systolic velocity in the proximal right internal carotid artery is 86 cm/sec. This corresponds to a 20 to 39% proximal right ICA stenosis. Normal systolic velocities are noted in the proximal right external carotid artery. There is antegrade flow in the right vertebral artery. The peak systolic velocity in the proximal left internal carotid artery is 113 cm/sec. This corresponds to a 40-59 percent proximal left ICA stenosis. Normal systolic velocities are noted in the proximal left external carotid artery. There is antegrade flow in the dominant left vertebral artery. IMPRESSION: 1. 40-59 percent proximal left ICA stenosis 2. 20-39 percent proximal right ICA stenosis. 3. Antegrade flow in both vertebral arteries.
[2016-09-21] MEDS ORDERED: Gadodiamide 287 MG/ML VIAL (15ML) IV ONE (20:09)
[2016-09-21 20:12] LABS: CHOLESTEROL 178 mg/dL (130-200)
--- NOTE | 2016-09-21 22:46 | CARD ---
APPROVED REPORT EKG Measurement Heart [id number] <Conclusion> Normal sinus rhythm Normal ECG
[2016-09-21] MEDS ORDERED: Pneumococcal 23-Valent Vaccine IM ONE (23:27)
[2016-09-22] MEDS: Dextrose 5%/0.45% NS 1,000 ML IV SCH ×2 (05:01→09:03)
[2016-09-22 07:08] LABS: ALB/GLOB RATIO 1.2 (1.1-1.8); ALKALINE PHOSPHATASE 46 U/L (38-133); ALT/SGPT 38 U/L (7-56); AST/SGOT 25 U/L (15-39); BILIRUBIN,TOTAL 0.8 mg/dL (0.2-1.3); BLOOD UREA NITROGEN 22 mg/dL (7-21); CARBON DIOXIDE 26 mmol/L (21-33); CHLORIDE 106 mmol/L (98-107); GFR AFRICAN-AMERICAN > 60; GLUCOSE,RANDOM 99 mg/dL (70-110); POTASSIUM 4.6 mmol/L (3.6-5.0); SODIUM 138 mmol/L (132-148); TOTAL PROTEIN 6.4 g/dL (5.8-8.3)
[2016-09-22 08:07] LABS: FREE T4 1.63 ng/dL (0.78-2.19)
[2016-09-22 08:22] LABS: THYROID STIMULATING HORMONE 2.04 mIU/mL (0.46-4.68)
[2016-09-22 09:04] VITALS: PULSE 55; O2SAT 98
--- NOTE | 2016-09-22 11:52 | MRI ---
PROCEDURE: MRI BRAIN WITH AND WITHOUT CONTRAST HISTORY: syncope COMPARISON: Head CT without contrast 09/21/2016 17:26 p.m.. TECHNIQUE: Multiplanar, multisequence MR images of the brain were obtained with and without intravenous contrast enhancement. FINDINGS: HEMORRHAGE: None DWI: No evidence of an acute or early subacute infarction. BRAIN PARENCHYMA: There is a tiny area of subcentimeter long TR hyperintensity at the left external capsule anteriorly, subcortical in location with a second similar focus identified at the posterior margins of the right external capsule as well. The corpus callosum appears unremarkable. These 2 white-matter foci appear nonspecific, with no white with no enhancement related. Intracranial enhancement appears within normal limits throughout. No additional white matter or cortical signal abnormalities are appreciated. Midline brain and appears within normal limits throughout. ENHANCEMENT: No abnormal intracranial enhancement. VENTRICLES: Unremarkable. No hydrocephalus. CRANIUM: Unremarkable. ORBITS: Grossly unremarkable. PARANASAL SINUSES/MASTOIDS: Minimal bilateral ethmoid sinus disease is encountered. VASCULAR SYSTEM: Skull base flow voids intact. OTHER FINDINGS: None . IMPRESSION: 1. Two tiny long TR white matter hyperintensities are appreciated only a few mm size in each case which are nonspecific. Remaining white matter is normal and there is no abnormal intracranial enhancement throughout. These minimal findings are of uncertain etiology and are completely nonspecific. 2. Remaining examination is normal. 3. Incidental trace bilateral ethmoid sinusitis.
--- NOTE | 2016-09-22 14:03 | CON ---
DATE: 09/22/2016 CHIEF COMPLAINT: Near syncope. HISTORY OF PRESENT ILLNESS: This is a 51-year-old woman, history of hypertension, dyslipidemia, history of gastroesophageal reflux disease, former smoker quit in 05/2016 presented to the hospital with sudden onset of generalized weakness and lightheadedness. When she was driving, she suddenly felt weak and she was going to pass out and shaking everywhere and felt like her right side of her face was numb. Therefore, she came to the hospital for further evaluation. CAT scan showed no acute intracranial abnormality. MRI of the brain showed no acute intracranial abnormality, just some incidental bilateral ethmoid sinusitis and 2 tiny long TR white matter hyperintensities which are few millimeters in size which are not specific without any enhancement. Neuro exam is nonfocal. Blood pressure today is slightly on the lower side, 90/57. PAST MEDICAL HISTORY: Hypertension and GERD. SOCIAL HISTORY: She was a former smoker, quit in 05/2016. Occasionally EtOH use. No illicit drug use. FAMILY HISTORY: Noncontributory. MEDICATIONS: Reviewed by nurse practitioner, see med reconciliation sheet. ALLERGIES: Allergic to CODEINE and PENICILLIN. PHYSICAL EXAMINATION VITAL SIGNS: Temperature 97.9, pulse rate 55, blood pressure 92/57, respirations of 18, oxygen saturation 98% on room air. GENERAL: The patient seen up in bed. No acute distress. HEENT: Atraumatic and normocephalic. PERRLA. Extraocular muscles intact. NECK: Supple. No JVD. No adenopathy noted. LUNGS: Clear to auscultation. No adventitious sounds. HEART: S1 and S2. Normal rate and rhythm. No murmurs, rubs, or gallops. ABDOMEN: Soft, nontender, nondistended. Bowel sounds are present. EXTREMITIES: No clubbing. No cyanosis. Peripheral pulses 2+ bilaterally. NEUROLOGIC: The patient is alert and oriented to person and place, month, and year. Speech is fluent without any errors. Cranial nerves II through XII intact. Motor exam: Moves all extremities equally. Toes are downgoing. Sensory exam: Light touch . DTRs are 2+ throughout. Coordination [id number] intact. Gait is normal. LABORATORY DATA: Sodium is 138, potassium is 4.0, chloride 106, carbon dioxide 26, BUN of 22, creatinine of 1, random glucose of 99. ASSESSMENT: This is a 51-year-old woman, history of gastroesophageal reflux disease, hypertension, former smoker, quit in 05/2016, had a near syncopal event. MRI of the brain showed no acute intracranial abnormality, just some tiny acute nonspecific few millimeter sized hypertensive lesions which are nonspecific with no abnormal enhancement. Some incidental trace bilateral ethmoid sinusitis but nothing of acute etiology. Neuro exam is nonfocal. Near syncope could be secondary to a transient vasovagal component. A carotid Doppler showed 40% to 59% possible left ICA stenosis given her history of smoking and right ICA 20% to 39%. At this time, I recommend: 1. Xanax p.r.n. for underlying anxiety which was possibly for her underlying transient right facial numbness. 2. Aspirin 81 mg p.o. daily. 3. Smoking cessation. 4. Can consider low-dose statin of Lipitor of 10 mg given her left ICA 40% to 59%, possible ICA occlusion. At this time, I am going to continue current present medical management. She is neurologically stable from my standpoint. Roe Hauser MD
[2016-09-22] MEDS ORDERED: Oxycodone/Acetaminophen 5/325 mg Tab PO PRN (14:50)
--- NOTE | 2016-09-22 18:16 | CP.PCM.PN ---
Subjective - Date & Time of Evaluation Date of Evaluation: 09/22/16 Time of Evaluation: 17:45 - Subjective Subjective: Patient seen at the request of her RN because she wanted to sign out AMA. Discussed with patient about her problem,namely,abdominal pain and the unknown reason for it. Called Dr Jeff ,with whom a consult has been ordered.Discussed results of her PMH and tests with him. Patient also gives history of a fall last November which resulted in residual pain in the R lateral lower rib region and in the R groin. At his request pt was examined. O/E She is alert Oriented x3,in no clinical distress Vs stable HEENT PERRL JVD NEG Lungs clear Cor S1S2 regular Abdomen soft,BS+ .Tenderness noted on palpation of lowest R rib in the lateral aspect,R lower abdomen and R groin. No guarding or rebound not Ext unremarkable CND No gross deficit Skin warm and dry IMP: Pain R last R rib region ,R lower abdomen and R groin. PLAN:The above findings and lab and radiology reports were discussed with Dr Jeff. He requested to place an order for MRI of the Abdomen and Pelvis.The same was done. Objective - Vital Signs/Intake and Output Vital Signs (last 24 hours): Temp Pulse Resp BP Pulse Ox 97.9 F 55 L 18 93/57 L 98 09/22/16 09:03 09/22/16 09:03 09/22/16 09:03 09/22/16 09:03 09/22/16 09:03 Intake and Output: 09/22/16 09/22/16 06:59 18:59 Intake Total 1000 600 Balance 1000 600 - Medications Medications: Current Medications Alprazolam (Xanax) 0.5 mg PO DAILY KRISHNA PRN Reason: Protocol Stop: 09/29/16 10:01 Last Admin: 09/22/16 09:42 Dose: Not Given Dextrose/Sodium Chloride (Dextrose 5%/0.45% Ns 1000 Ml) 1,000 mls @ 100 mls/hr IV .Q10H KRISHNA Last Admin: 09/22/16 09:03 Dose: 100 mls/hr Oxycodone/Acetaminophen (Percocet 5/325 Mg Tab) 1 tab PO Q4H PRN PRN Reason: Pain, moderate (4-7) Stop: 09/25/16 14:51 - Labs Labs: 09/22/16 06:00
--- NOTE | 2016-09-23 03:34 | HP ---
HISTORY OF PRESENT ILLNESS: The patient is a 51 years old who has a complicated long history of having pain in the right groin that is going on for couple of months. The patient had multiple office visits and hospitalizations for right groin pain. She saw Dr. Brewster who thought this is a diverticulitis, gave course of Cipro and Flagyl. [place] a little better, has been having intermittent pain in the right groin to the point that she started to sweat and felt as she is going to pass out. Similar episode happened yesterday. She pulled over, call 911 and she was brought to emergency room. She also complained of having constipation intermittently. She states yesterday because of the pain that she developed in the right lower abdomen she felt very weak, dizzy and started shaking and she thought it is not normal, so she came to ER. PAST MEDICAL HISTORY: Hypertension, hyperlipidemia and gastroesophageal reflux disease. SOCIAL HISTORY: She is . Has no biological children. She has a . She is a former smoker, quit in 05/2016. Denies alcohol use. FAMILY HISTORY: Not relevant. ALLERGIES: SHE IS ALLERGIC TO CODEINE AND PENICILLIN. MEDICATIONS AT HOME: She is on Tramadol, metronidazole 500 3 times a day, Motrin 600 q.i.d. p.r.n., Pepcid 20 b.i.d., Cipro 500 twice a day, vitamin D and Xanax 0.5 daily. REVIEW OF SYSTEMS: She still has right lower quadrant discomfort. Of note, the patient also has appendectomy done. PHYSICAL EXAMINATION: GENERAL: She seems to be comfortable. VITAL SIGNS: She is afebrile, pulse 55, respiration 18 and blood pressure 93/57. HEENT AND NECK: She has symmetrical face. Anicteric sclerae. Pale conjunctiva. No lymphadenopathy. No thyromegaly. HEART: S1 and S2 audible. No murmur. LUNGS: Bilateral good air flow. No rhonchi or crackles. ABDOMEN: Soft, slight right lower quadrant discomfort on deep palpitation. NEUROLOGIC: She is awake, alert and communicative. Moves all extremities. LABORATORY DATA: WBC is 7.5, hemoglobin is 12.6, hematocrit 36.2 and platelet 197. Chemistry; sodium 138, potassium 4.6, chloride 106, CO2 of 26, BUN 22, creatinine 1.0 and blood sugar of 99. Thyroid profile is negative. Urinalysis is unremarkable. Carotid Doppler is unremarkable. MRI of the brain has too tiny long white matter hyperintensities, seems to be nonspecific. She had CT scan of the abdomen and pelvis done back in 09/10/2016, it has no acute intraabdominal abnormalities. ASSESSMENT: 1. This seem probably vasovagal, secondary to pain. 2. Gastroesophageal reflux disease. 3. Hyperlipidemia. 4. History of smoking. 5. Status post epidural injection few days ago. PLAN: The patient is evaluated by neurologist already awaiting Dr. Jeff's input, after that we can make a discharge plan. Flavio Beebe MD
[2016-09-23 08:22] VITALS: BP 107/72; RESP 19; TEMP 98.6
--- NOTE | 2016-09-23 23:32 | DS ---
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 She said she has not improved, the patient said that she prefers to go home and get this done as an outpatient. She has had a MRA and it has been order, if she is able to get the MRA, then she will be discharged. Otherwise, she will go home and follow up as an outpatient, she says her pain is tolerable, she is able to keep her food down and eat properly. No headaches or dizziness. No nausea or vomiting. PHYSICAL EXAMINATION: VITAL SIGNS: Temperature 98.6, pulse of 55, blood pressure 107/72, respirations 19 and O2 saturation 98%. GENERAL: The patient is comfortable, in no acute distress. HEENT: Anicteric sclerae. Moist mucosa. NECK: No JVD or adenopathy. CARDIAC: S1, S2. No murmurs. No rubs. Regular. RESPIRATORY: Clear to auscultation bilaterally. No wheezes, rales, or rhonchi. Good air entry. ABDOMEN: Bowel sounds are positive, soft, nontender, and nondistended. Right groin tenderness, no rebound. EXTREMITIES: No edema. Has 1+ pulses. ASSESSMENT: 1. Right groin pain. 2. Vasovagal syncope secondary to pain. 3. Gastroesophageal reflux disease. 4. Dyslipidemia. 5. Smoking history. PLAN: The patient is on tramadol, he is going to be on Xanax as needed, he is on Percocet for pain. The patient had to be discharge home. Condition is stable. Activities, increase as tolerated. Luisito Bealuieu MD
--- NOTE | 2016-09-24 15:09 | MRI ---
PROCEDURE: MRI Abdomen without contrast HISTORY: Right lower abdominal pain COMPARISON: None available. TECHNIQUE: Multisequence, multiplanar MR images of the abdomen without gadolinium contrast enhancement. FINDINGS: LIVER: Unremarkable. GALLBLADDER: Unremarkable. SPLEEN: Unremarkable. ADRENALS: Unremarkable. KIDNEYS: Unremarkable. PANCREAS: Unremarkable. AORTA: No aneurysm. ASCITES: None. PERITONEUM: Unremarkable. LYMPH NODES: Unremarkable. OTHER FINDINGS: The report concurs with the preliminary [facility] report IMPRESSION: Negative study
--- NOTE | 2016-09-24 15:14 | MRI ---
PROCEDURE: MRI pelvis without contrast HISTORY: R lower pelvic pain COMPARISON: None available. TECHNIQUE: Multiplanar, multi sequence MR images of the pelvis were obtained. No intravenous gadolinium contrast was administered. FINDINGS: UTERUS: Unremarkable OVARIES/ ADNEXA: Not visualized BOWEL: Partially visualized rectosigmoid colon is grossly unremarkable. LYMPH NODES: No lymphadenopathy. BLADDER: Unremarkable. FREE FLUID: None. PELVIC BONES: Grossly unremarkable. OTHER FINDINGS: The report concurs with the preliminary [facility] report IMPRESSION: No acute findings
== END 2016-09-23 16:17 | disposition home or self-care (01) ==
LOC: ED 15:29 → ERH 18:34 → 3RSO 22:10
PROVIDERS: ADMIT Internal Medicine; ATTEND Internal Medicine
DX: R10.31 Right lower quadrant pain (principal); R55 Syncope and collapse; K21.9 Gastro-esophageal reflux disease without esophagitis; E78.5 Hyperlipidemia, unspecified; K57.92 Diverticulitis of intestine, part unspecified, without perforation or abscess without bleeding; K59.00 Constipation, unspecified; R42 Dizziness and giddiness; I10 Essential (primary) hypertension; F41.9 Anxiety disorder, unspecified; Z87.891 Personal history of nicotine dependence; Z88.5 Allergy status to narcotic agent; Z88.0 Allergy status to penicillin
CPT/HCPCS: 36415; 70450; 70553; 71010; 72195; 74181; 80053; 80061; 81001; 82550; 82948; 83615; 83735; 84439; 84443; 84484; 84703; 85025; 87086; 93005; 93880; 96374; 96375; 99285; A9579; G0378; J1885; J2405; J7040; J7042

== ENCOUNTER 2017-02-01 15:37 | Emergency (ER) | payer BC ==
[2017-02-01 15:38] VITALS: BMI 24.1
[2017-02-01 16:12] VITALS: RESP 18; TEMP 98.1
[2017-02-01 16:24] LABS: URINE BILIRUBIN NEGATIVE (NEGATIVE); URINE BLOOD NEGATIVE (NEGATIVE); URINE GLUCOSE (UA) NEGATIVE (NEGATIVE); URINE KETONE NEGATIVE (NEGATIVE); URINE LEUKOCYTE ESTERASE TRACE Leu/uL (NEGATIVE); URINE PROTEIN NEGATIVE mg/dL (<30 mg/dL); URINE UROBILINOGEN 0.2 E.U./dL (<1 E.U./dL)
[2017-02-01 16:27] LABS: URINE APPEARANCE CLEAR (CLEAR); URINE COLOR YELLOW (YELLOW)
[2017-02-01 16:38] LABS: INR 1.22 (0.93-1.08); PARTIAL THROMBOPLASTIN TIME 28.9 Seconds (25.1-36.5)
[2017-02-01 16:53] LABS: ALB/GLOB RATIO 1.4 (1.1-1.8); ALKALINE PHOSPHATASE 65 U/L (38-126); ALT/SGPT 34 U/L (7-56); AST/SGOT 30 U/L (14-36); BILIRUBIN,TOTAL 0.5 mg/dL (0.2-1.3); BLOOD UREA NITROGEN 15 mg/dL (7-21); CALCIUM 9.8 mg/dL (8.4-10.5); CARBON DIOXIDE 26 mmol/L (21-33); CHLORIDE 105 mmol/L (98-107); CHOLESTEROL 215 mg/dL (130-200); GFR AFRICAN-AMERICAN > 60; GLUCOSE,RANDOM 129 mg/dL (70-110); POTASSIUM 3.9 mmol/L (3.6-5.0); SODIUM 139 mmol/L (132-148); TOTAL PROTEIN 7.5 g/dL (5.8-8.3)
[2017-02-01 16:57] LABS: URINE BACTERIA MANY (NEG); URINE RBC 0 - 2 /hpf (0-2)
[2017-02-01 16:58] LABS: URINE AMORPHOUS SEDIMENT FEW
[2017-02-01 17:08] LABS: TROPONIN I < 0.01 ng/mL
--- NOTE | 2017-02-01 17:13 | CT ---
PROCEDURE: CT scan cervical spine dated 02/01/2017. HISTORY: Neck pain. Dizziness. Paresthesia. COMPARISON: None available. TECHNIQUE: Axial computed tomography images were obtained of the cervical spine without the use of intravenous contrast. Coronal and sagittal reformatted images were created and reviewed. Radiation dose: Total exam DLP = 558.56 mGy-cm. This CT exam was performed using one or more of the following dose reduction techniques: Automated exposure control, adjustment of the mA and/or kV according to patient size, and/or use of iterative reconstruction technique. FINDINGS: VERTEBRAE: The current study reveals no acute compression fractures no retropulsed fragments. The vertebral bodies exhibit normal stature on. Vertebral bodies and facets normally aligned. DISCS/SPINAL CANAL/NEURAL FORAMINA: Very minor multilevel degenerative spondylosis. Changes include mild disc space narrowing more so along the posterior disc margins with very small anterolateral osteophyte formation most pronounced at the C5-C6 and C6-C7 levels. . There are no disc herniations nor significant disc bulges. The overall central bony canal and exit foramina appear adequate. No evidence of extradural collections. PARASPINAL SOFT TISSUES: Prevertebral and paraspinal soft tissues unremarkable. OTHER FINDINGS: Lung apices are clear. No evidence of apical pneumothorax. IMPRESSION: No evidence of acute compression fractures, retropulsed fragments nor malalignment.
[2017-02-01 17:14] LABS: BASO # 0.02 K/mm3 (0.0-2.0); BASO % 0.4 % (0.0-3.0); EOS # 0.1 (0.0-0.7); EOS % 1.9 % (1.5-5.0); GRAN # 3.14 (1.4-6.5); GRAN % 58.9 % (50.0-68.0); HEMATOCRIT 36.7 % (36.0-48.0); LYMPH # 1.7 (1.2-3.4); LYMPH % 31.9 % (22.0-35.0); MEAN CELL VOLUME 94.3 fl (80.0-105.0); MEAN CORPUSCULAR HEMOGLOBIN 32.1 pg (25.0-35.0); MEAN CORPUSCULAR HGB CONC 34.1 g/dl (31.0-37.0); MEAN PLATELET VOLUME 9.8 fl (7.0-11.0); MONO # 0.4 (0.1-0.6); MONO % 6.9 % (1.0-6.0); RED CELL DISTRIBUTION WIDTH 11.9 % (11.5-14.5); WHITE BLOOD COUNT 5.3 10^3/ul (4.5-11.0)
--- NOTE | 2017-02-01 17:15 | CT ---
PROCEDURE: CT HEAD WITHOUT CONTRAST. HISTORY: dizziness/paresthesia COMPARISON: Comparison made with CT scan brain dated 09/21/2016. . TECHNIQUE: Axial computed tomography images were obtained through the head/brain without intravenous contrast. Radiation dose: Total exam DLP = 678.13 mGy-cm. This CT exam was performed using one or more of the following dose reduction techniques: Automated exposure control, adjustment of the mA and/or kV according to patient size, and/or use of iterative reconstruction technique. FINDINGS: HEMORRHAGE: No acute parenchymal, subarachnoid or extra-axial the hemorrhage. BRAIN: No obvious parenchymal nor extra-axial mass or collection seen on this noncontrast study. No focal areas of abnormal attenuation seen VENTRICLES: No obstructive hydrocephalus. CALVARIUM: No acute calvarial fractures. PARANASAL SINUSES: Unremarkable as visualized. No significant inflammatory changes. MASTOID AIR CELLS: Unremarkable as visualized. No inflammatory changes. OTHER FINDINGS: None. IMPRESSION: No acute intracranial hemorrhage.
[2017-02-01 18:02] VITALS: BP 114/71; PULSE 60; O2SAT 99
--- NOTE | 2017-02-01 18:46 | ED PDOC ---
Arrival/HPI - General Chief Complaint: Dizziness/Lightheaded Time Seen by Provider: 02/01/17 15:48 Historian: Patient - History of Present Illness Narrative History of Present Illness (Text): 02/01/17 18:35 51yo female with no PMHx who present with [id number] dizziness and numbness of his b/l arm. Notes that numbness and dizziness started after mechanical fall months ago. States she was told she have bulging/herniation disc of her cervical spin. States she had a nerve block medication for neck pain weeks ago, without relieve. states paresthesia comes with the neck pain. She notes previous history of same dizziness . she denies focal weakness, chest pain, visual changes, facial droop, SOB, any other complaint. Past Medical History - Provider Review Nursing Documentation Reviewed: Yes - Infectious Disease Hx of Infectious Diseases: None - Cardiac Hx Cardiac Disorders: No - Pulmonary Hx Respiratory Disorders: No - Neurological Hx Neurological Disorder: No - HEENT Hx HEENT Disorder: No - Renal Hx Renal Disorder: No - Endocrine/Metabolic Hx Endocrine Disorders: No - Hematological/Oncological Hx Blood Disorders: No - Integumentary Hx Dermatological Disorder: No - Musculoskeletal/Rheumatological Hx Falls: No - Gastrointestinal Hx Gastrointestinal Disorders: Yes (appendectomy) Hx Gastroesophageal Reflux: Yes Other/Comment: began having groin pain back in june 2016 which progressed to rlq and ruq abd pain wiht nausea and vomiting, also c/o acid reflux, most recently rx'd cipro and flagyl, colonoscopy 03/16/2013 dx redundant colon and internal hemorrhoids, pt denies hx of rectal bleeding - Genitourinary/Gynecological Hx Genitourinary Disorders: No - Psychiatric Hx Psychophysiologic Disorder: Yes Hx Anxiety: Yes Hx Substance Use: No - Surgical History Hx Appendectomy: Yes Hx Cholecystectomy: Yes Hx Orthopedic Surgery: Yes (Left knee surgery) Hx Tonsillectomy: Yes - Anesthesia Hx Anesthesia: Yes Hx Anesthesia Reactions: No Hx Malignant Hyperthermia: No - Suicidal Assessment Feels Threatened In Home Enviroment: No Family/Social History - Physician Review Nursing Documentation Reviewed: Yes Family/Social History: Unknown Family HX Smoking Status: Former Smoker Hx Alcohol Use: Yes (social) Hx Substance Use: No Allergies/Home Meds Allergies/Adverse Reactions: Allergies codeine Allergy (Verified 02/01/17 15:53) ANAPHYLAXIS Penicillins Allergy (Verified 02/01/17 15:53) ANAPHYLAXIS Home Medications: Home Meds Medication Instructions Recorded Confirmed ALPRAZolam [Xanax] 0.5 mg PO DAILY PRN 09/10/16 02/01/17 Review of Systems - Physician Review All systems were reviewed & negative as marked: Yes - Review of Systems Constitutional: Normal Eyes: Normal ENT: Normal Respiratory: Normal Cardiovascular: Normal Gastrointestinal: Normal Genitourinary Female: Normal Musculoskeletal: Neck Pain Skin: Normal Neurological: Dizziness, Other (numbness). absent: Headache, Focal Weakness, Speech Changes, Facial Droop Endocrine: Normal Hemo/Lymphatic: Normal Psychiatric: Normal Physical Exam Vital Signs Reviewed: Yes Vital Signs Temp Pulse Resp BP Pulse Ox 02/01/17 18:01 60 18 114/71 99 02/01/17 16:10 98.1 F 71 18 133/77 98 Temperature: Afebrile Blood Pressure: Normal Pulse: Regular Respiratory Rate: Normal Appearance: Positive for: Well-Appearing, Non-Toxic, Comfortable Pain Distress: None Mental Status: Positive for: Alert and Oriented X 3 Finger Stick Blood Glucose: 151 - Systems Exam Head: Present: Atraumatic, Normocephalic Pupils: Present: PERRL Extroacular Muscles: Present: EOMI Conjunctiva: Present: Normal Mouth: Present: Moist Mucous Membranes Neck: Present: Normal Range of Motion. No: MIDLINE TENDERNESS, Paraspinal Tenderness Respiratory/Chest: Present: Clear to Auscultation, Good Air Exchange. No: Respiratory Distress, Accessory Muscle Use Cardiovascular: Present: Regular Rate and Rhythm, Normal S1, S2. No: Murmurs Abdomen: Present: Normal Bowel Sounds. No: Tenderness, Distention, Peritoneal Signs Back: Present: Normal Inspection Upper Extremity: Present: Normal Inspection. No: Cyanosis, Edema Lower Extremity: Present: Normal Inspection. No: Edema Neurological: Present: GCS=15, CN II-XII Intact, Speech Normal, Motor Func Grossly Intact, Normal Sensory Function, Normal Cerebellar Funct, Norm Deep Tendon Reflexes, Gait Normal, Memory Normal, Normal 2Pt Descrimination, Other ( No focal neurological deficit) Skin: Present: Warm, Dry, Normal Color. No: Rashes Psychiatric: Present: Alert, Oriented x 3, Normal Insight, Normal Concentration Medical Decision Making ED Course and Treatment: 02/01/17 19:06 PT presented for stated history. She was neurologically intact and hemodynamically stable in ED. Lab was mostly unremarkable EKG NSR @70bpm CXR NAD Head CT Negative Cervical spine CT - DJD no hernia/bulging. On re evaluation pt notes her dizziness improved in ED with meclizine. She was ambulatory with steady gait. She notes that she already have an appointment with a Neurologist on the of this month. She was encouraged to keep her appointment. Advised TRT ED for worsening symptoms. Rx of Meclizine 25mg given as needed. - Lab Interpretations Lab Results: 02/01/17 16:10 02/01/17 16:10 Lab Results 02/01/17 16:13: Urine Color Yellow, Urine Appearance Clear, Urine pH 6.0, Ur Specific [place] <= 1.005, Urine Protein Negative, Urine Glucose (UA) Negative, Urine Ketones Negative, Urine Blood Negative, Urine Nitrate Negative, Urine Bilirubin Negative, Urine Urobilinogen 0.2, Ur Leukocyte Esterase Trace H, Urine RBC 0 - 2, Urine WBC 2 - 5, Ur Epithelial Cells 6 - 8, Amorphous Sediment Few, Urine Bacteria Many 02/01/17 16:10: Sodium 139, Potassium 3.9, Chloride 105, Carbon Dioxide 26, Anion Gap 13, BUN 15, Creatinine 0.9, Est GFR ( Amer) > 60, Est GFR (Non- Af Amer) > 60, Random Glucose 129 H, Calcium 9.8, Total Bilirubin 0.5, AST 30, ALT 34, Alkaline Phosphatase 65, Troponin I < 0.01, Total Protein 7.5, Albumin 4.4, Globulin 3.1, Albumin/Globulin Ratio 1.4, Triglycerides 86, Cholesterol 215 H, LDL Cholesterol Direct 129, HDL Cholesterol 66 H 02/01/17 16:10: PT 13.3 H, INR 1.22 H, APTT 28.9 02/01/17 16:10: WBC 5.3 D, RBC 3.89, Hgb 12.5, Hct 36.7, MCV 94.3, MCH 32.1, MCHC 34.1, RDW 11.9, Plt Count 236, MPV 9.8, Gran % 58.9, Lymph % (Auto) 31.9, [place] % (Auto) 6.9 H, Eos % (Auto) 1.9, Baso % (Auto) 0.4, Gran # 3.14, Lymph # 1.7, [place] # 0.4, Eos # 0.1, Baso # 0.02 - RAD Interpretation Radiology Orders: 02/01/17 15:57 HEAD W/O CONTRAST [CT] Stat 02/01/17 16:34 CERVICAL SPINE W/O CONTRAST [CT] Stat - Medication Orders Current Medication Orders: Discontinued Medications Meclizine HCl (Antivert) 25 mg PO ONCE ONE Stop: 02/01/17 17:01 Last Admin: 02/01/17 17:13 Dose: 25 mg Disposition/Present on Arrival - Present on Arrival Any Indicators Present on Arrival: No History of DVT/PE: No History of Uncontrolled Diabetes: No Urinary Catheter: No History of Decub. Ulcer: No History Surgical Site Infection Following: None - Disposition Have Diagnosis and Disposition been Completed?: Yes Diagnosis: Dizziness, Paresthesia of arm Disposition: HOME/ ROUTINE Disposition Time: 19:00 Patient Plan: Discharge Condition: STABLE Discharge Instructions (ExitCare): Dizziness (ED) Additional Instructions: Take medication as directed Follow up with a Neurologist Return to ED for new or worsening symptoms Prescriptions: Meclizine [Meclizine*] 25 mg PO Q6 #12 tab Referrals: Damaso Middleton MD [Primary Care Provider] - Follow up with primary Forms: [place] ([place])
--- NOTE | 2017-02-02 10:47 | CARD ---
APPROVED REPORT EKG Measurement Heart [id number] <Conclusion> Normal sinus rhythm with sinus arrhythmia ST abnormality, possible digitalis effect Abnormal ECG
== END 2017-02-01 19:02 | disposition home or self-care (01) ==
LOC: ED 15:37
DX: R20.2 Paresthesia of skin (principal); R42 Dizziness and giddiness; Z88.0 Allergy status to penicillin; Z87.891 Personal history of nicotine dependence